=== PATIENT | female | born 1985 | race Caucasian/White ===

== ENCOUNTER 2022-09-22 15:30 | Emergency (ER) | payer OTHER, SELFPAY ==
[2022-09-22 16:12] LABS: MANUAL DIFF FLAG NO
[2022-09-22 16:16] LABS: Basophils Absolute Auto 0.1 X10*3/uL (0.0-0.2); Basophils Percent Auto 0.5 % (0-2); Eosinophils Percent Auto 0.1 % (0-4); Hematocrit 43.7 % (37.0-47.0); Hemoglobin 14.4 g/dl (12.0-16.0); Imm Gran Abs Auto 0.03 X10*3/uL (0.00-0.03); Imm Gran Pct Auto 0.3 % (0.0-0.4); Lymphocytes Absolute Auto 1.2 X10*3/uL (1.2-4.9); Lymphocytes Percent Auto 11.9 % (20-40); Mean Corpuscular Hemoglobin 28.1 pg (27.0-33.0); Mean Corpuscular Volume 85.4 fL (80.0-98.0); Mean Platelet Volume 9.5 fL (9.4-12.3); Monocytes Absolute Auto 0.3 X10*3/uL (0.1-1.2); Monocytes Percent Auto 3.1 % (2-11); Neutrophils Absolute Auto 8.1 x10*3/uL (2.0-8.3); Neutrophils Percent Auto 84.1 % (45-73); Platelet Count 287 X10*3/uL (160-400); Red Blood Count 5.12 X10*6/uL (4.20-5.50); Red Cell Distribution Width 13.4 % (11.0-16.0); White Blood Count 9.6 X10*3/uL (4.8-10.8)
[2022-09-22 16:31] LABS: Alanine Aminotransferase 11 U/L (0-31); Albumin Level 4.3 g/dL (3.5-5.0); Alkaline Phosphatase 62 U/L (39-117); Anion Gap 13 (12-20); Aspartate Amino Transferase 14 U/L (5-31); Bilirubin Direct < 0.2 mg/dL (0.0-0.5); Bilirubin Total 0.4 mg/dL (0.0-1.0); Blood Urea Nitrogen 9 mg/dL (9-16); Calcium 9.4 mg/dL (8.4-10.2); Carbon Dioxide 28 mmol/L (22-29); Chloride 107 mmol/L (96-108); Estimated Glomerular Filt Rate > 60; Ethanol < 10 mg/dL; Glucose Random 117 mg/dL (60-115); Magnesium 2.1 mg/dL (1.6-2.6); Potassium 3.9 mmol/L (3.3-5.1); Sodium 144 mmol/L (135-145)
[2022-09-22 16:48] LABS: COVID-19 Test Negative (Negative); IDNOW Serial# 08D9AD1C
== END 2022-09-22 18:22 | disposition left against medical advice (07) ==
PROVIDERS: Physician Assistant; Emergency Provider Emergency Medicine; PCP Student in an Organized Health Care Education/Training Program
DX: Z04.9 Encounter for examination and observation for unspecified reason (principal); Z79.899 Other long term (current) drug therapy; Z20.822 Contact with and (suspected) exposure to COVID-19; Z20.828 Contact with and (suspected) exposure to other viral communicable diseases
CPT/HCPCS: 80048; 80076; 82077; 83735; 85025; 87635

== ENCOUNTER 2025-04-01 09:56 | Outpatient (AMB) | payer OTHER, SELFPAY ==
--- NOTE | 2025-04-01 10:01 | MHC.PC.OV ---
Vital Signs 04/01/25 10:11 Height 5 ft 4 in Weight 174 lb BMI 29.9 BP 100/62 Blood Pressure Location Rt brachial Position Sitting Respiration 14 Pulse 69 Pulse Source Pulse Oximeter Temp 98.1 F Temp Source Temporal Artery Scan Pulse Oximetry (%) 98 Oxygen Delivery Method Room Air Intake Visit Reasons: [employer] CARE Intake Note: Loly presents in the office today to establish care. Allergies Penicillins Allergy (Verified 04/01/25 10:05) Hives Medication List - Last Reconciled 04/01/25 by Denzel Pandya MD No Known Home Meds Tobacco use date assessed: 04/01/25 Dental Screening Dental Screen Date: 04/01/25 Did you have a dental visit in the last 12 months?: No Did you have a dental problem in the last 6 months where you did not have access to dental care?: No Was dental information given to patient?: Patient declined HPI [employer] HPI Details New Patient? ?? Prior PCP:? No recent PCP Last office visit/CPE:? Many yrs Acute issue(s):? Neck pain Surgery October 05, 2024 at [facility]. C6 R neck shoulder Did PT but since back to work its getting worse - Lift 50lb bags PT stopped 2 mos ago ?? PMHx:? Neck pain, Hx hep C - Cleared. 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 SurgHx:? C6 discectomy & fusion. FHx:? Dad: MS. Mom: Unknown. Aunt: MS SocHx: Smokes < 1 ppd Still Vapes. EtOH None. MJ Daily. No drugs anymore PFSH Medical History (Updated 04/01/25 @ 11:07 by Denzel Pandya MD) Cervical disc herniation Anxiety Bipolar 1 disorder Migraines Arthritis Liver disease Spine pain, cervical Jaundice Hepatitis C Family History (Updated 04/01/25 @ 10:10 by Carola Delgadillo CMA) Father Substance abuse Alcoholism Mother Substance abuse Narcotic abuse Other FH: mental illness Social History (Updated 04/01/25 @ 10:10 by Carola Delgadillo CMA) Housing: Apartment Alcohol intake: never Patient Tobacco Use Status: Current everyday Tobacco user Cigarette Packs Per Day: 1 Cigarettes Per Day: 10 Years Smoked: 23 e-Cigarette/Vaping Use: Currently Using Second Hand Smoke Exposure: No Substance Use Type: Marijuana service: No Current occupational status: employed Current occupation: [employer] Current occupational exposures/hazards: No Cognitive needs: No Hearing needs: Yes Vision needs: Yes Questionnaire PHQ-9 Over the last 2 weeks, how often have you been bothered by any of the following problems? 1. Little interest or pleasure in doing things: not at all 2. Feeling down, depressed, or hopeless: not at all 3. Trouble falling or staying asleep, or sleeping too much: not at all 4. Feeling tired or having little energy: not at all 5. Poor appetite or overeating: not at all 6. Feeling bad about yourself - or that you are a failure or have let yourself or your family down: not at all 7. Trouble concentrating on things, such as reading the newspaper or watching television: not at all 8. Moving or speaking so slowly that other people could have noticed. Or the opposite - being so fidgety or restless that you have been moving around a lot more than usual: not at all 9. Thoughts that you would be better off or of hurting yourself in some way: not at all Total score: 0 Depression Screening Interpretation: Negative Depression Screening Done: Yes 82805 - PHQ-9 Billing: Yes Source: Developed by Drs. Margarito Willson, Carmina Lemus, Matt Maria and colleagues, with an educational delfino from [employer]. Thrive Questionnaire Date Thrive assessed: 04/01/25 I am a: Patient What is your living situation today?: I have a steady place to live Within the past 12 months, did the food you bought not last and you didn't have the money to get more?: Never true Within the past 12 months, did you worry whether your food would run out before you got money to buy more?: Never true Do you have trouble paying for medicines?: No Do you have trouble getting transportation to medical appointments?: No Do you have trouble paying your heating and electricity bill?: I choose not to answer this question Do you have trouble taking care of your child, family member or friend?: No Do you have trouble with day-to-day activities such as bathing, preparing meals, shopping, managing finances, etc.?: No Are you currently unemployed and looking for a job?: No Are you interested in more education?: No Please select the resources that you would like help with: Utilities Currently or been in a relationship where the following occur: No concerns reported THRIVE Score: 0 AUDIT C Alcohol Use Questionnaire (AUDIT-C) 1. How often do you have a drink containing alcohol?: Never 3. How often do you have six or more drinks on one occasion?: Never Total Score: 0 ELLIOT-7 AMB Questionnaire ELLIOT-7 Date ELLIOT - 7 assessed: 04/01/25 Feeling nervous, anxious, or on edge: 2 = More than half the days Not being able to stop or control worryin = More than half the days Worrying too much about different things: 2 = More than half the days Trouble relaxin = More than half the days Being so restless that it is hard to sit still: 2 = More than half the days Becoming easily annoyed or irritable: 2 = More than half the days Feeling afraid as if something awful might happen: 0 = Not at all Total ELLIOT-7 score (0-4 normal; 5-9 mild; 10-14 moderate; 15-21 severe): 12 Source: Developed by Drs. Margarito Willson, Carmina Lemus, Matt Maria and colleagues, with an educational delfino from [employer]. ELLITO-7 Assessment Billing ELLIOT-7 Assessment Tool: ELLIOT-7 Assessment 42691 Review of Systems Const Denies chills, Denies fatigue, Denies fever(s), Denies headache(s) and Denies weakness ENT Denies dizziness and Denies headache(s) Card Denies chest pain, Denies lightheadedness, Denies dyspnea and Denies other (Palpitations) Resp Denies cough, Denies dyspnea, Denies wheezing and Denies other ( shortness of breath) Musc Details: Neck pain Denies numbness and Denies tingling Neuro Denies dizziness, Denies headache(s), Denies numbness, Denies tingling, Denies paresthesias and Denies weakness Psych Reports anxiety and Denies depression Endo Denies fatigue Aller/Immun Denies wheezing Physical exam (Primary Care) Vital Signs: Last Vital Signs Temp 98.1 F 04/01/25 10:11 Pulse 69 04/01/25 10:11 Resp 14 04/01/25 10:11 BP 100/62 04/01/25 10:11 Pulse Ox 98 04/01/25 10:11 Oxygen Delivery Method Room Air 04/01/25 10:11 BMI result Body Mass Index 29.9 Tobacco/Smoking Status: Tobacco use Status Tobacco use date assessed 04/01/25 04/01/25 10:07 Patient Tobacco Use Status Current everyday Tobacco 04/01/25 10:10 e-Cigarette/Vaping Use Currently Using 04/01/25 10:10 PHQ-9: PHQ-9 Score PHQ-9: Total score 0 04/01/25 10:26 Depression Screening Interpretation: Negative Thrive Assessment: Date of Thrive Assessment Date Thrive assessed 04/01/25 04/01/25 10:04 Currently or been in a relationship where the following occur: No concerns reported Const General: no acute distress and well developed Nutritional Appearance: well nourished Orientation/consciousness: patient oriented x3 HENMT Head: Yes normocephalic and Yes atraumatic Eyes General: appearance normal, both eyes and all related structures Pupils: Equal, round and reactive pupils present EOM: EOMs intact bilaterally Resp Effort & Inspection: normal respiratory effort Auscultation: clear to auscultation bilaterally Cardio Rate: regular rate Rhythm: regular rhythm Heart sounds: S1 normal heart sound present, S2 normal heart sound present, no gallops, no murmurs and no rubs Neuro General: patient oriented x3 and gait normal Cranial nerves: Yes Equal, round and reactive pupils present Psych Affect: normal affect Coding Level of Care Code New Pt Level 4 (63667) Diagnoses Cervicalgia M54.2 Migraines G43.909 Anxiety F41.9 Bipolar 1 disorder F31.9 IUD (intrauterine device) in place Z97.5 Laboratory exam ordered as part of routine general medical examination Z00.00 History of substance abuse F19.11 Smoker F17.200 Additional Codes ELLIOT-7 Assessment Billing - ELLIOT-7 Assessment Tool: ELLIOT-7 Assessment 94963 ([id number]) PHQ-9 - 63093 - PHQ-9 Billing: Yes ([id number]) Assessment & Plan Assessment & Plan (1) Cervicalgia: Code(s): M54.2 - Cervicalgia Category: Medical Plan: Cervicalgia and history of C6 diskectomy and fusion Still having neck pain with some radiation into her right shoulder and arm Start physical therapy Referring her back to [facility] Use NSAID-will send script for meloxicam which she can take once a day for few days in row when she gets flare-ups (2) Migraines: Code(s): G43.909 - Migraine, unspecified, not intractable, without status migrainosus Category: Medical Plan: History of migraines We can discuss further at subsequent visits (3) Anxiety: Code(s): F41.9 - Anxiety disorder, unspecified Category: Medical Plan: Significant anxiety History of substance abuse and she would like to avoid habit-forming substances h/o Bipolar I Will start bupropion 75 mg b.i.d.. Do not take 2nd dose too close to bedtime Referring her to nurse navigator to connect her with a therapist Will follow-up in a month and adjust medication or consider adjunct medications (4) Bipolar 1 disorder: Code(s): F31.9 - Bipolar disorder, unspecified Category: Medical Plan: As above (5) IUD (intrauterine device) in place: Code(s): Z97.5 - Presence of (intrauterine) contraceptive device Category: Medical Plan: Patient says she has had her IUD in for about 10 years and needs to have this removed Referred to data administrator (6) Laboratory exam ordered as part of routine general medical examination: Code(s): Z00.00 - Encounter for general adult medical examination without abnormal findings Category: Medical (7) History of substance abuse: Code(s): F19.11 - Other psychoactive substance abuse, in remission Category: Medical (8) Smoker: Code(s): F17.200 - Nicotine dependence, unspecified, uncomplicated Category: Social Hx Plan History of substance abuse, in remission. Has completed methadone therapy as well and this discontinued in May 2024 Remain abstinent of opioids and illicit substances Smoking: Patient is smoking 1/3 pack per day of cigarettes and also vapes. Encouraged weaning. We will discuss further at subsequent visits History of hep C infection-cleared. Checking hep C antibody as well as viral load and liver enzymes Orders: Orders Comprehensive [place]. Panel Fast Today Z00.00 - Encounter for general adult medical examination without abnormal findings UA CC w/rflx Micro + Cult Today Z00.00 - Encounter for general adult medical examination without abnormal findings PT Evaluation and Treatment Today M54.2 - Cervicalgia Complete Blood Count Auto Diff Today Z00.00 - Encounter for general adult medical examination without abnormal findings Microalbumin, Random (w Creat) Today I10 - Essential (primary) hypertension Lipid Panel Today Z00.00 - Encounter for general adult medical examination without abnormal findings TSH reflex Free T4 Today Z00.00 - Encounter for general adult medical examination without abnormal findings Hepatitis B,C Profile Today Z11.3 - Encounter for screening for infections with a predominantly sexual mode of transmission Hepatitis C Viral Load Today R76.89 - Other specified abnormal immunological findings in serum Referrals PAPER MACHINE TENDER Referral Z97.5 - Presence of (intrauterine) contraceptive device Neurosurgery Referral M54.2 - Cervicalgia, Z98.890 - Other specified postprocedural states Medications: New meloxicam 15 mg PO DAILY 30 tabs 2RF 30 days
[2025-04-01 10:11] VITALS: BP 100/62; PULSE 69; RESP 14; TEMP 36.7; O2SAT 98; BMI 29.9
== END 2025-04-01 10:58 | disposition home or self-care (01) ==
LOC: HO.HMCFM 09:57
PROVIDERS: PCP Family Medicine; Visit Provider Family Medicine
DX: M54.2 Cervicalgia (principal); G43.909 Migraine, unspecified, not intractable, without status migrainosus; F41.9 Anxiety disorder, unspecified; F31.9 Bipolar disorder, unspecified; Z97.5 Presence of (intrauterine) contraceptive device; Z00.00 Encounter for general adult medical examination without abnormal findings; F19.11 Other psychoactive substance abuse, in remission; F17.200 Nicotine dependence, unspecified, uncomplicated

== ENCOUNTER → 2025-04-01 09:56 | Outpatient (BNVA) | payer OTHER, SELFPAY | PROVIDERS: PCP Family Medicine; Visit Provider Family Medicine | DX: Z00.00 Encounter for general adult medical examination without abnormal findings (principal); F31.9 Bipolar disorder, unspecified; F41.9 Anxiety disorder, unspecified; M54.2 Cervicalgia; G43.909 Migraine, unspecified, not intractable, without status migrainosus; F19.11 Other psychoactive substance abuse, in remission; F17.210 Nicotine dependence, cigarettes, uncomplicated; Z97.5 Presence of (intrauterine) contraceptive device | CPT/HCPCS: 96127 ==